=== PATIENT | male | born 1930 | race Caucasian/White ===

== ENCOUNTER → 2016-10-17 | Outpatient (CLI) | payer MEDICARE ==
[~2016-10-17] MED LIST: ADALAT; ARICEPT; ARICEPT10 MG PO; ASPIR-LOW81 MG PO; ASPIRIN E.C. 8181 MG PO; FERROUS SULFATE65 MG PO; HYDRALAZINE; LEVAQUIN 750MG750 M1 PO; LOPID 600M600 MG/TAB PO; LUTEIN6 MG; MULTI VITAMINS1 TAB PO; MULTIPLE VITAMI1 TAB PO; MVI; TUSS PO; VITAMIN B12 PO; VITAMIN B122500 MCG PO; VITAMIN C500 MG PO; XYAL5 MG; ZITHROMAX 250M250 MG PO
== END ==
LOC: COL.VAS 10:47
DX: M79.89 Other specified soft tissue disorders (principal)

== ENCOUNTER 2017-12-18 09:52 | Inpatient (IN) | payer MEDICARE ==
[~2017-12-18] VITALS: Ht 175.3 cm; Wt 75.8 kg
[~2017-12-18 09:52] MED LIST changes: -LUTEIN6 MG; +LUTEIN6 MG PO
[2017-12-18] MEDS ORDERED: ASPIRIN 81M81 MG/TA2 PO (10:36)
[2017-12-18] MEDS ORDERED: NATURAL IRON65 MG PO (10:36)
[2017-12-18] MEDS ORDERED: AMOXICILLIN 8751 TAB PO (10:37)
[2017-12-18 10:48] LABS: MEAN CELL VOLUME 95 fl (80.0-100.0); MEAN CORPUSCULAR HGB CONC 30 g/dl (33.0-37.0); MEAN PLATELET VOLUME 10.3 fl (7.4-10.4); PLATELET COUNT 391 K/mm3 (130-400); RED BLOOD COUNT 3.13 M/mm3 (4.20-5.60); REDCELL DISTRIBUTION WIDTH-CV 16.4 % (11.5-14.5)
[2017-12-18 10:51] LABS: HEMATOCRIT 29.8 % (42.0-52.0); HEMOGLOBIN 8.9 g/dl (13.5-18.0); MEAN CORPUSCULAR HEMOGLOBIN 28 pg (27.0-31.0)
[2017-12-18 11:02] LABS: ALANINE AMINOTRANSFERASE 56 U/L (21-72); ALBUMIN 3.6 gm/dL (3.5-5.0); ALKALINE PHOSPHATASE 75 U/L (50-136); ANION GAP 13 mmol/L (7-16); AST,SGOT 69 U/L (15-37); BILIRUBIN,TOTAL 0.8 mg/dL (0.0-1.0); BLOOD UREA NITROGEN 30 mg/dL (9-20); CARBON DIOXIDE 23 mmol/L (22-30); CHLORIDE 105 mmol/L (98-107); GLUCOSE 126 mg/dL (74-106); MAGNESIUM 2.4 mg/dL (1.6-2.3); PHOSPHOROUS 4.1 mg/dL (2.5-4.5); POTASSIUM 4.3 mmol/L (3.4-5.0); SODIUM 141 mmol/L (137-145); TOTAL PROTEIN 6.5 gm/dL (6.4-8.2)
[2017-12-18 11:16] LABS: TROPONIN-I < 0.012 ng/mL (0.000-0.034)
[2017-12-18 11:18] LABS: BAND 8 % (0-10); LYMPHOCYTE 13 % (20.0-51.0); NEUTROPHILS 75 % (42.0-75.2); PLATELET ESTIMATE NORMAL (NORMAL)
[2017-12-18 11:19] LABS: HYPOCHROMIA 3+
[2017-12-18 11:33] LABS: PROTHROMBIN TIME 11.2 SECONDS (9.7-12.8)
[2017-12-18 11:36] LABS: PARTIAL THROMBOPLASTIN TIME 24.7 SECONDS (26.0-37.0)
[2017-12-18 11:48] LABS: COLLECTION METHOD CLEAN CATCH
[2017-12-18 12:09] LABS: MUCOUS Present /lpf; PH 5 (5-8); SQUAMOUS EPITHELIAL 0-2 /hpf; URINE APPEARANCE Hazy; URINE BACTERIA Rare /hpf; URINE BILIRUBIN Negative (NEGATIVE); URINE BLOOD Negative (NEGATIVE); URINE COLOR Amber; URINE GLUCOSE Negative (NEGATIVE); URINE KETONE Trace (NEGATIVE); URINE LEUKOCYTE ESTERASE Negative (NEGATIVE); URINE NITRATE Negative (NEGATIVE); URINE PROTEIN(semi-quant) 2+ (NEGATIVE)
[2017-12-18 15:28] VITALS: BP 155/59; PULSE 65; TEMP 98.3
[2017-12-18 17:38] LABS: HEMATOCRIT 31.9 % (42.0-52.0); HEMOGLOBIN 9.6 g/dl (13.5-18.0)
[2017-12-18 20:03] VITALS: BP 157/52; PULSE 91; TEMP 98.5
[2017-12-18 22:46] LABS: HEMATOCRIT 27.8 % (42.0-52.0); HEMOGLOBIN 8.5 g/dl (13.5-18.0)
[2017-12-19] VITALS (11 sets, daily range): BP systolic 128–198; BP diastolic 51–87; PULSE 64–82; TEMP 98.5–100.4
[2017-12-19 06:31] LABS: MEAN CELL VOLUME 95 fl (80.0-100.0); MEAN CORPUSCULAR HGB CONC 30 g/dl (33.0-37.0); MEAN PLATELET VOLUME 10.3 fl (7.4-10.4); PLATELET COUNT 320 K/mm3 (130-400); RED BLOOD COUNT 2.78 M/mm3 (4.20-5.60); REDCELL DISTRIBUTION WIDTH-CV 16.4 % (11.5-14.5)
[2017-12-19 06:37] LABS: HEMATOCRIT 26.5 % (42.0-52.0); HEMOGLOBIN 7.9 g/dl (13.5-18.0); MEAN CORPUSCULAR HEMOGLOBIN 28 pg (27.0-31.0)
[2017-12-19 07:05] LABS: CALCIUM 8.4 mg/dL (8.4-10.2); CREATININE, serum 1.15 mg/dL (0.66-1.25); POTASSIUM 4.2 mmol/L (3.4-5.0)
[2017-12-19 07:18] LABS: BAND 5 % (0-10); EOSINOPHIL 2 % (0-4); LYMPHOCYTE 21 % (20.0-51.0); NEUTROPHILS 64 % (42.0-75.2)
[2017-12-19 07:19] LABS: ANISOCYTOSIS 1+; HYPOCHROMIA 1+; PLATELET ESTIMATE NORMAL (NORMAL); TARGET CELLS 1+
[2017-12-19 07:22] LABS: POLYCHROMASIA 1+
[2017-12-19 14:39] LABS: HEMATOCRIT 27.9 % (42.0-52.0); HEMOGLOBIN 8.3 g/dl (13.5-18.0)
[2017-12-19 20:02] LABS: HEMATOCRIT 28.3 % (42.0-52.0); HEMOGLOBIN 8.5 g/dl (13.5-18.0)
[2017-12-19 23:34] LABS: COLLECTION METHOD CLEAN CATCH
[2017-12-19 23:41] LABS: PH 5 (5-8); SQUAMOUS EPITHELIAL 0-2 /hpf; URINE APPEARANCE Clear; URINE BACTERIA Rare /hpf; URINE BILIRUBIN Negative (NEGATIVE); URINE BLOOD Negative (NEGATIVE); URINE COLOR Straw; URINE GLUCOSE Negative (NEGATIVE); URINE KETONE Trace (NEGATIVE); URINE LEUKOCYTE ESTERASE Negative (NEGATIVE); URINE NITRATE Negative (NEGATIVE); URINE PROTEIN(semi-quant) Negative (NEGATIVE); URINE RBC 0-2 /hpf; URINE UROBILINOGEN Negative (NEGATIVE)
[2017-12-20] VITALS (7 sets, daily range): BP systolic 141–173; BP diastolic 44–75; PULSE 68–92; TEMP 97.9–99.6
[2017-12-20 07:24] LABS: BASO % 0.2 % (0.0-2.0); EOS # 0.3 (0.0-0.7); EOS % 2.4 % (0-4.0); GRAN # 9.9 (1.4-6.5); GRAN % 77.3 % (42.2-75.2); LYMPH # 1.1 (1.2-3.4); LYMPH % 8.5 % (20.0-51.0); MEAN CELL VOLUME 96 fl (80.0-100.0); MEAN CORPUSCULAR HGB CONC 30 g/dl (33.0-37.0); MEAN PLATELET VOLUME 10.5 fl (7.4-10.4); MONO # 1.3 (0.1-0.6); MONO % 10.4 % (1.7-9.3); PLATELET COUNT 294 K/mm3 (130-400); RED BLOOD COUNT 2.53 M/mm3 (4.20-5.60); REDCELL DISTRIBUTION WIDTH-CV 16.5 % (11.5-14.5)
[2017-12-20 07:25] LABS: CALCIUM 7.7 mg/dL (8.4-10.2); CREATININE, serum 1.15 mg/dL (0.66-1.25)
[2017-12-20 07:29] LABS: HEMATOCRIT 24.3 % (42.0-52.0); HEMOGLOBIN 7.3 g/dl (13.5-18.0); MEAN CORPUSCULAR HEMOGLOBIN 29 pg (27.0-31.0)
[2017-12-21 02:49] VITALS: BP 162/51; PULSE 80; TEMP 97.9
[2017-12-21 08:23] VITALS: BP 164/78; PULSE 83; TEMP 98.3
[2017-12-21] MEDS ORDERED: TYLENOL 325MG325 MG PO (11:47)
[2017-12-21] MEDS ORDERED: ATIVAN 0.50.5 MG/TAB PO (11:48)
[2017-12-21] MEDS ORDERED: ROXANOL 20MG20 MG/ML PO (11:48)
[2017-12-21 12:15] VITALS: BP 159/69; PULSE 74; TEMP 98.1
== END 2017-12-21 15:25 | disposition hospice, home (50) | DRG 375 ==
LOC: COL.ER 09:52 → MEDICAL 13:17
PROVIDERS: Emergency Medicine; Family Medicine; Internal Medicine Gastroenterology; Nurse Practitioner Family; Physician Assistant
PROC: 0DBN8ZX Excision of Sigmoid Colon, Via Natural or Artificial Opening Endoscopic, Diagnostic (ICD-10-PCS; principal; 2017-12-19 13:15)
PROC: 0DJ08ZZ Inspection of Upper Intestinal Tract, Via Natural or Artificial Opening Endoscopic (ICD-10-PCS; 2017-12-19 13:15)
DX: C18.7 Malignant neoplasm of sigmoid colon (principal); K92.1 Melena; N17.9 Acute kidney failure, unspecified; Z66 Do not resuscitate; Z51.5 Encounter for palliative care; D50.0 Iron deficiency anemia secondary to blood loss (chronic); I10 Essential (primary) hypertension; I49.8 Other specified cardiac arrhythmias; E86.0 Dehydration; G30.9 Alzheimer's disease, unspecified; F02.80 Dementia in other diseases classified elsewhere, unspecified severity, without behavioral disturbance, psychotic disturbance, mood disturbance, and anxiety; Z85.46 Personal history of malignant neoplasm of prostate; Z85.030 Personal history of malignant carcinoid tumor of large intestine; Z87.891 Personal history of nicotine dependence
CPT/HCPCS: 99222-AI; 99232-AI; 99233-AI; 99239; C9113; J0360; J2250; J3010; J7030; J7040; Q9967